=== PATIENT | male | born 1995 | race American Indian/Alaskan Native ===

== ENCOUNTER 2017-12-03 22:47 | Emergency (ER) | payer MEDICAID ==
--- NOTE | 2017-12-03 23:59 | XRay Report ---
FINAL REPORT PROCEDURE: XR ANKLE 3+V RT TECHNIQUE: RIGHT ankle radiographs, AP, lateral, and oblique views. CPT 03926 HISTORY: fell off car rt ankle pain COMPARISON: No prior studies are available for comparison. FINDINGS: Fracture (s) and/or Dislocation(s): None. Alignment: Normal. Joint space(s): Normal. Soft tissues: Moderate degree soft tissue swelling is noted over the lateral malleolus.. Bone mineralization: Normal. Foreign bodies: None. Calcaneal spurring: None. IMPRESSION: No acute fracture Soft tissue swelling.
[2017-12-04] LABS: Basophils # (Auto) 0.1 K/mm3 (0.0-0.1); Basophils % (Auto) 0.7 % (0.0-1.8); Eosinophils % (Auto) 0.3 % (0.0-4.3); Hematocrit 43.2 % (35.5-45.6); Hemoglobin 14.7 gm/dl (11.8-15.2); Lymphocytes # (Auto) 1.5 K/mm3 (1.2-5.4); Lymphocytes % (Auto) 18.6 % (13.4-35.0); Mean Corpuscular HGB Conc 34 % (32-34); Mean Corpuscular Hemoglobin 31 pg (28-32); Mean Corpuscular Volume 91 fl (84-94); Monocytes # (Auto) 0.9 K/mm3 (0.0-0.8); Monocytes % (Auto) 11.6 % (0.0-7.3); Platelet Count 306 K/mm3 (140-440); Red Blood Count 4.74 M/mm3 (3.65-5.03); Red Cell Distribution Width 13.3 % (13.2-15.2)
[2017-12-04 00:15] LABS: BUN/Creatinine Ratio 6; Blood Urea Nitrogen 5 mg/dL (9-20); Calcium 9.7 mg/dL (8.4-10.2); Hemolysis Index 1
[2017-12-04] MEDS ORDERED: MOTRIN PO ONE (00:40)
--- NOTE | 2017-12-04 01:08 | Emergency Department Report ---
ED Psych HPI - General Chief Complaint: Extremity Injury, Lower Stated Complaint: RT ANKLE PAIN Time Seen by Provider: 12/04/17 00:29 Source: patient Mode of arrival: Ambulatory - History of Present Illness Initial Comments: 22-year-old male with history of bipolar and schizophrenia presents to the ER with complaints of right ankle pain. Patient states he jumped off of the top of his car which was stationary. When asked why, patient stated "I pulled a superman!" Pt states this was not a suicide attempt. Patient does report pain to right ankle and swelling. Patient told triage nurse that he is having auditory hallucinations telling him to hurt others. Patient denies when I ask him. Patient denies drug use. States has small amount of alcohol tonight. Pt denies suicidal ideations. -: This afternoon Associated Psychiatric Symptoms: auditory hallucinations Quality: intermittent Improves With: none Worsens With: none Context: recent alcohol abuse Treatments Prior to Arrival: none - Related Data Home Medications Medication Instructions Recorded Confirmed Last Taken Benztropine [Cogentin] 2 mg PO DAILY 12/04/17 12/04/17 Unknown Divalproex Sodium [Depakote] 500 mg PO BID 12/04/17 12/04/17 Unknown OLANZapine [Zyprexa] 20 mg PO HS 12/04/17 12/04/17 Unknown Allergies Allergy/AdvReac Type Severity Reaction Status Date / Time No Known Allergies Allergy Verified 12/03/17 23:13 ED Review of Systems ROS: Stated complaint: RT ANKLE PAIN Other details as noted in HPI Comment: All other systems reviewed and negative Musculoskeletal: joint swelling, other (reports ankle pain) Psychiatric: auditory hallucinations. denies: homicidal thoughts, suicidal thoughts ED Past Medical Hx - Past Medical History Previous Medical History?: Yes Hx Sickle Cell Disease: (sickle cell trait) Hx Psychiatric Treatment: Yes (bipolar schizo) - Surgical History Past Surgical History?: Yes Additional Surgical History: eye. tonsil - Social History Smoking Status: Current Every Day Smoker Substance Use Type: Alcohol - Medications Home Medications: Home Medications Medication Instructions Recorded Confirmed Last Taken Type Benztropine [Cogentin] 2 mg PO DAILY 12/04/17 12/04/17 Unknown History Divalproex Sodium [Depakote] 500 mg PO BID 12/04/17 12/04/17 Unknown History OLANZapine [Zyprexa] 20 mg PO HS 12/04/17 12/04/17 Unknown History ED Physical Exam - General Limitations: No Limitations General appearance: alert - Head Head exam: Present: atraumatic, normocephalic - Eye Eye exam: Present: normal appearance - ENT ENT exam: Present: mucous membranes moist - Neck Neck exam: Present: normal inspection, full ROM. Absent: tenderness - Respiratory Respiratory exam: Present: normal lung sounds bilaterally. Absent: respiratory distress - Cardiovascular Cardiovascular Exam: Present: normal rhythm, tachycardia - GI/Abdominal GI/Abdominal exam: Present: soft. Absent: tenderness - Extremities Exam Extremities exam: Present: other (tenderness to right lateral ankle w/ moderate swelling present; right DP pulse nl; sensation nml; able to flex/extend toes) - Neurological Exam Neurological exam: Present: alert, oriented X3. Absent: motor sensory deficit - Psychiatric Psychiatric exam: Present: manic, other (elevated mood, pressured speech, flights of ideas present) - Skin Skin exam: Present: warm, dry, intact, normal color ED Course Vital Signs 12/03/17 12/03/17 12/04/17 22:59 23:05 00:53 Temperature 99.3 F 99.3 F 99.3 F Pulse Rate 143 H 143 H 130 H Respiratory 26 H 18 18 Rate Blood Pressure 141/87 Blood Pressure 141/87 132/79 [Right] O2 Sat by Pulse 98 97 98 Oximetry 12/04/17 12/04/17 10:00 20:16 Temperature 98.9 F 98.5 F Pulse Rate 101 H 94 H Respiratory 16 16 Rate Blood Pressure Blood Pressure 155/75 140/97 [Right] O2 Sat by Pulse 98 98 Oximetry ED Medical Decision Making - Lab Data Result diagrams: 12/03/17 23:21 12/03/17 23:21 - EKG Data -: EKG Interpreted by Ms EKG shows normal: axis, intervals, QRS complexes, ST-T waves Rate: tachycardia - EKG Data Interpretation: other (sinus tach, otherwise nml) - Radiology Data Radiology results: report reviewed, image reviewed - Medical Decision Making 22-year-old male presents with right ankle pain after jumping off his car. X- ray negative for fracture. Patient sustained a sprain to right ankle. Patient has history of bipolar and schizophrenia, seems to be manic at this time with inflated mood, pressured speech, flight of ideas. Patient tachycardic on exam. Full obtained drug screen and mental health evaluation. Awaiting mental health dispo. - Differential Diagnosis fracture, sprain, alba, drug abuse Critical care attestation.: If time is entered above; I have spent that time in minutes in the direct care of this critically ill patient, excluding procedure time. ED Disposition Clinical Impression: Right ankle sprain, Medical clearance for psychiatric admission Disposition: [id number] PSY HOSP/PSY UNIT Is pt being admited?: No Condition: Stable Instructions: Ankle Sprain (ED) Referrals: RONY RETANA MD [Staff Physician] - 3-5 Days PRIMARY CAREMD [Primary Care Provider] - 3-5 Days
[2017-12-04 01:51] LABS: Bilirubin,Urine NEG (Negative); Blood,Urine NEG (Negative); Color,Urine Straw (Yellow); Protein,Urine <15 mg/dL mg/dL (Negative); RBC,Urine < 1.0 /HPF (0.0-6.0); Urobilinogen,Urine < 2.0 mg/dL (<2.0)
[2017-12-04 02:13] LABS: Amphetamine Screen,Urine PRESUMPTIVE NEGATIVE; Benzodiazepines Screen,Urine PRESUMPTIVE NEGATIVE; Cannabinoid Screen,Urine PRESUMPTIVE NEGATIVE; Cocaine Screen,Urine PRESUMPTIVE NEGATIVE; Methadone Screen,Urine PRESUMPTIVE NEGATIVE; Opiate Screen,Urine PRESUMPTIVE NEGATIVE
[2017-12-04] MEDS ORDERED: HALDOL IM PRN (08:10)
[2017-12-04] MEDS ORDERED: ATIVAN IM PRN (08:10)
[2017-12-04 22:17] VITALS: BP 140/97
== END 2017-12-05 00:24 ==
LOC: EEVIPCON 22:47 → ED 22:47
DX: S93.401A Sprain of unspecified ligament of right ankle, initial encounter (principal); F31.9 Bipolar disorder, unspecified; F20.9 Schizophrenia, unspecified; F17.200 Nicotine dependence, unspecified, uncomplicated; X50.9XXA Other and unspecified overexertion or strenuous movements or postures, initial encounter; Y93.39 Activity, other involving climbing, rappelling and jumping off; Y92.89 Other specified places as the place of occurrence of the external cause; Y99.8 Other external cause status
CPT/HCPCS: 36415; 73610; 80048; 80307; 81001; 85025; 93005; 93010; 99285; G0480; J1630; J2060; 80320